=== PATIENT | male | born 2000 | race Caucasian/White ===

== ENCOUNTER 2020-05-02 13:41 | Inpatient (IN) | payer SELFPAY ==
--- NOTE | 2020-05-02 | RT.EKG_ITS ---
APPROVED REPORT Exam: Resting ECG HR:105 bpm ECG Measurements Heart Rate 105 AXES MT 175 P 23 QRSd 88 QRS -15 QT 342 T 34 QTc 453 <Conclusion> Sinus tachycardia...rate> 99 LVH by voltage...(R I+S III) >2.50mV Baseline wander in lead(s) V2,V3,V4,V5,V6 The ED physician agrees with the ECG cart interpretation.
== END 2020-05-02 15:37 | disposition home or self-care (01) | DRG 999 ==
LOC: ICU 13:44
CPT/HCPCS: 93005; 93010